=== PATIENT | female | born 1985 | race African-American/Black ===

== ENCOUNTER 2017-10-29 10:32 | Emergency (ER) | payer OTHER ==
[~2017-10-29] VITALS: Ht 177.8 cm; Wt 158.8 kg
--- NOTE | 2017-10-29 10:35 | NUR ---
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 ASA 162, AOX3 , VSS STABLE , EKG ON GOING , WILL CONTINUE TO MONITOR
--- NOTE | 2017-10-29 10:48 | NUR ---
SPOKE TO RAMON AT [facility] INTAKE [phone], THEY WILL HOLD PATIENT'S BED WHEN SHE IS READY TO COME BACK.
[2017-10-29 11:06] LABS: BASOPHILS # (AUTO) 0.3 /CMM (0.0-0.2); EOSINOPHILS % (AUTO) 2.6 % (0.0-6.0); HEMATOCRIT 38 % (33-45); HEMOGLOBIN 12.9 g/dL (11.5-14.8); LYMPHOCYTES # (AUTO) 1.8 /CMM (0.8-4.8); LYMPHOCYTES % (AUTO) 20.9 % (20.0-44.0); MEAN CORPUSCULAR HEMOGLOBIN 31 PG (26.0-33.0); MEAN CORPUSCULAR HGB CONC 34 g/dl (31.0-36.0); MEAN CORPUSCULAR VOLUME 90 fL (82-100); MONOCYTES # (AUTO) 0.6 /CMM (0.1-1.30); MONOCYTES % (AUTO) 7.3 % (2.0-12.0); NEUTROPHILS # (AUTO) 5.5 /CMM (1.8-8.9); NEUTROPHILS % (AUTO) 66.2 % (43.0-81.0); PLATELET COUNT (AUTO) 270 /CMM (150-450); RDW COEFFICIENT OF VARIATION 12.4 (11.5-15.0); RED BLOOD CELL COUNT(AUTO) 4.21 MIL/uL (4.0-5.2); WHITE BLOOD COUNT (AUTO) 8.4 K/uL (4.3-11.0)
[2017-10-29 11:16] LABS: CALCIUM, SERUM 8.8 mg/dL (8.5-10.1); CARBON DIOXIDE 29 mmol/L (21-32); CHLORIDE 105 mmol/L (98-107); CREATININE 0.7 mg/dL (0.6-1.3); GLUCOSE 84 mg/dL (74-106); POTASSIUM 4.2 mmol/L (3.5-5.1); SODIUM SERUM 139 mmol/L (136-145); UREA NITROGEN, BLOOD 17 mg/dL (7-18)
[2017-10-29 11:22] LABS: INR 1.01 (0.85-1.15)
[2017-10-29 11:32] LABS: TROPONIN I < 0.017 ng/mL (0.00-0.056)
--- NOTE | 2017-10-29 11:44 | NUR ---
CALLED [facility] FOR TRANSPORT BACK TO [facility], ETA 1 HOUR, TRIP #[id number]
--- NOTE | 2017-10-29 11:53 | NUR ---
CALLED FOR FOOD TRAY
--- NOTE | 2017-10-29 13:22 | NUR ---
IV removed. Catheter intact and site benign. Pressure and 4x4 applied to site. No bleeding noted.Patient discharged to [facility]UL[facility] in stable condition. Written and verbal after care instructions given. Patient verbalizes understanding of instruction.
[2017-10-29 13:23] VITALS: BP 126/70
== END 2017-10-29 13:24 ==
LOC: ER 10:35
DX: R07.89 Other chest pain (principal); E66.8 Other obesity; J45.909 Unspecified asthma, uncomplicated; Z68.30 Body mass index [BMI] 30.0-30.9, adult; Z98.890 Other specified postprocedural states; Z86.73 Personal history of transient ischemic attack (TIA), and cerebral infarction without residual deficits
CPT/HCPCS: 36415; 71045; 80048; 84484; 85025; 85730; 93005; 99285; A4606; Z7610

== ENCOUNTER 2017-11-12 16:57 | Emergency (ER) | payer OTHER ==
[~2017-11-12] VITALS: Ht 172.7 cm; Wt 158.8 kg
--- NOTE | 2017-11-12 17:30 | NUR ---
PATIENT TO ED FOR PYSCHE EVALUATION. PATIENT IS AWAKE AND ALERT. ADMITTED BEING DEPRESSED, NO SI. NO HI. PATIENT IS AFEBRILE. VSS
--- NOTE | 2017-11-12 17:45 | NUR ---
called rt for breathing treatment
[2017-11-12] MEDS ORDERED: IPRATROPIUM NEB FS 0.5 MG/2.5 ML AMPUL.NEB ONE (17:49)
[2017-11-12] MEDS ORDERED: ALBUTEROL FS 2.5 MG/3 ML VIAL.NEB ONE (17:49)
[2017-11-12 17:50] LABS: BASOPHILS # (AUTO) 0.3 /CMM (0.0-0.2); BASOPHILS % (AUTO) 2.7 % (0.0-2.0); EOSINOPHILS % (AUTO) 3.9 % (0.0-6.0); HEMATOCRIT 36 % (33-45); HEMOGLOBIN 12.4 g/dL (11.5-14.8); LYMPHOCYTES # (AUTO) 2.8 /CMM (0.8-4.8); LYMPHOCYTES % (AUTO) 28.6 % (20.0-44.0); MEAN CORPUSCULAR HEMOGLOBIN 31 PG (26.0-33.0); MEAN CORPUSCULAR HGB CONC 35 g/dl (31.0-36.0); MEAN CORPUSCULAR VOLUME 90 fL (82-100); MONOCYTES # (AUTO) 0.4 /CMM (0.1-1.30); MONOCYTES % (AUTO) 4.4 % (2.0-12.0); NEUTROPHILS # (AUTO) 5.8 /CMM (1.8-8.9); NEUTROPHILS % (AUTO) 60.4 % (43.0-81.0); PLATELET COUNT (AUTO) 276 /CMM (150-450); RDW COEFFICIENT OF VARIATION 12.6 (11.5-15.0); RED BLOOD CELL COUNT(AUTO) 4.02 MIL/uL (4.0-5.2); WHITE BLOOD COUNT (AUTO) 9.7 K/uL (4.3-11.0)
--- NOTE | 2017-11-12 17:50 | NUR ---
[facility] bedside for ekg
--- NOTE | 2017-11-12 17:51 | NUR ---
urine cup provided to pt
--- NOTE | 2017-11-12 17:51 | NUR ---
rt bedside for breathing hugo
[2017-11-12] MEDS ORDERED: ALBUTEROL FS 2.5 MG/3 ML VIAL.NEB NEB ONE (18:00)
[2017-11-12] MEDS ORDERED: IPRATROPIUM NEB FS 0.5 MG/2.5 ML AMPUL.NEB NEB ONE (18:00)
[2017-11-12 18:01] LABS: CARBON DIOXIDE 30 mmol/L (21-32); CHLORIDE 107 mmol/L (98-107); CREATININE 0.8 mg/dL (0.6-1.3); GLUCOSE 91 mg/dL (74-106); POTASSIUM 3.6 mmol/L (3.5-5.1); SODIUM SERUM 141 mmol/L (136-145); UREA NITROGEN, BLOOD 10 mg/dL (7-18)
[2017-11-12 18:06] LABS: ALANINE AMINOTRANSFERASE 21 U/L (12-78); ALBUMIN 3.6 g/dL (3.4-5.0); ALCOHOL, BLOOD < 3 mg/dL (0-0); ALKALINE PHOSPHATASE 68 U/L (46-116); ASPARTATE AMINOTRANSFERASE 15 U/L (15-37); BILIRUBIN,DIRECT 0.1 mg/dL (0.0-0.2); BILIRUBIN,TOTAL 0.3 mg/dL (0.2-1.0); SALICYLATE 3.1 mg/dL (2.8-20.0); TOTAL PROTEIN, SERUM 7.1 g/dL (6.4-8.2)
[2017-11-12 18:08] LABS: ACETAMINOPHEN 0 ug/ml (10-30)
[2017-11-12 18:16] LABS: APPEARANCE,URINE Clear (CLEAR); BILIRUBIN,URINE SMALL (NEGATIVE); BLOOD, URINE Large Ery/uL (NEGATIVE); COLOR,URINE Yellow (YELLOW); KETONES,URINE Trace (NEGATIVE); LEUKOCYTE ESTERASE ,URINE Negative (NEGATIVE); NITRITE, URINE Negative (NEGATIVE); PH,URINE 5.5 (5.0-8.0); PROTEIN,URINE 30 mg/dl (NEGATIVE); UGLUCOSE Negative (NEGATIVE)
[2017-11-12 18:41] LABS: BACTERIA,URINE 1+ /HPF (None Seen); MUCUS,URINE Moderate /LPF (None Seen)
[2017-11-12 18:42] LABS: URINE AMORPHOUS URATE Few /HPF (None Seen)
[2017-11-12 19:06] VITALS: BP 122/70
--- NOTE | 2017-11-12 19:06 | NUR ---
Patient discharged to home in stable condition. Written and verbal after care instructions given. Patient verbalizes understanding of instruction.
== END 2017-11-12 19:07 | disposition home or self-care (01) ==
LOC: ER 16:58
DX: R07.89 Other chest pain (principal); F32.9 Major depressive disorder, single episode, unspecified; J45.909 Unspecified asthma, uncomplicated; Z86.73 Personal history of transient ischemic attack (TIA), and cerebral infarction without residual deficits; Z98.890 Other specified postprocedural states
CPT/HCPCS: 36415; 80048; 80076; 80305; 80329; 81001; 84484; 85025; 93005; 94640; 99285; A4606; G0480 ×2; Z7610; 81000-TC